=== PATIENT | male | born 2000 | race Hispanic/Latino ===

== ENCOUNTER 2021-02-13 09:23 | Emergency (ER) | payer OTHER ==
[~2021-02-13] VITALS: Ht 167.6 cm; Wt 95.2 kg
[2021-02-13] MEDS ORDERED: TRAZODONE HCL50 MG PO (09:57)
[2021-02-13] MEDS ORDERED: MILK OF MA400 MG/5 M PO (09:58)
[2021-02-13] MEDS ORDERED: ZESTRIL5 MG PO (09:58)
[2021-02-13] MEDS ORDERED: DOCUSATE CALCI240 MG PO (09:59)
[2021-02-13] MEDS ORDERED: ANTI-ITCH28 G2 TOP (10:01)
== END 2021-02-13 11:02 | disposition home or self-care (01) ==
LOC: ED 09:23
DX: S63.502A Unspecified sprain of left wrist, initial encounter (principal); X58.XXXA Exposure to other specified factors, initial encounter; Z87.891 Personal history of nicotine dependence; Z79.899 Other long term (current) drug therapy
CPT/HCPCS: 73110; 99283-25

== ENCOUNTER 2021-02-20 22:59 | Emergency (ER) | payer OTHER ==
[~2021-02-20] VITALS: Ht 167.6 cm; Wt 95.2 kg
[~2021-02-20 22:59] MED LIST: ANTI-ITCH28 G2 TOP; DOCUSATE CALCI240 MG PO; MILK OF MA400 MG/5 M PO; TRAZODONE HCL50 MG PO; ZESTRIL5 MG PO
--- OUTSIDE RECORDS SUMMARY | 2021-02-20 23:02 | XMS ---
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 [facility] has no Care Guidelines for this patient. [facility] V[facility] (12 MO.) [facility] T[facility] NOTE: Visits indicate total known visits. ED/C VISIT TRACKING (12 MO.) [facility] COMPLAINT: - STOMACH PROBLEM 02/13/2021 09:[address] [facility] [place] TYPE: Emergency COMPLAINT: - L WRIST PAIN DIAGNOSES: - Personal history of nicotine dependence - Other assisted (current) drug therapy - Unspecified sprain of left wrist, initial encounter - Exposure to other specified factors, initial encounter - Pain in left wrist INPATIENT VISIT TRACKING (12 MO.) No inpatient visits to display in this time frame [email or web address]
[2021-02-20] MEDS ORDERED: CONSTULOSE10 GM/15 M PO (23:52)
== END 2021-02-21 02:20 | disposition home or self-care (01) ==
LOC: ED 22:59
DX: R10.9 Unspecified abdominal pain (principal); I10 Essential (primary) hypertension; Z79.899 Other long term (current) drug therapy
CPT/HCPCS: 80053; 81001; 83690; 85025; 96374; 96375; 99284-25; J2270; J2405; J7030